=== PATIENT | male | born 1960 | race Caucasian/White ===

== ENCOUNTER 2018-09-24 11:33 | Emergency (ER) | payer BC ==
[2018-09-24] MEDS ORDERED: Sodium Chloride 0.9% 10 ML Syringe FLUSH PRN (11:51)
--- NOTE | 2018-09-24 12:00 | EDM.PDOC ---
ED HPI GENERAL MEDICAL PROBLEM - General Chief Complaint: Head Injury Stated Complaint: HIT HEAD Time Seen by Provider: 09/24/18 11:49 Source of Information: Reports: Patient History Limitations: Reports: No Limitations - History of Present Illness INITIAL COMMENTS - FREE TEXT/NARRATIVE: 58-year-old male presents to the ED by ambulance after passing out in the workplace. Patient remembers being slightly dizzy and lightheaded for just a short period of time before he collapsed and was found unresponsive on the floor. It's unclear what he hit but he believes he may have struck the counter top with his right ashlee-face. He has suffered contusions and superficial lacerations over his right zygomatic process and along the inferior alae of his right naris. He has no malocclusion. He states he has have a facial pain and mild right headache. Note the patient had a defibrillator pacemaker placed on July 2010 .He doesn't think that it went off. Examination reveals he is contused the right side of his face with superficial lacerations but nothing that is going to require suture repair. Patient is on aliquots because of chronic atrial fibrillation. Therefore he will be for CT of his head to make sure there is no intracranial bleeding. ECG shows atrial fibrillation with a rate of 121/m. Blood pressure is 140/84. He does show multifocal PVCs. Therefore we will have his defibrillator pacemaker interrogated. 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 It's unclear how long he was unresponsive since it was no one else around him. He was working in a very hot steamy environment cooking. He believes he struck the countertop with the right side of his face with resultant lacerations and contusions.). Denies : Activity, Exercise, Lifting, Sick Contact, Trauma Associated Symptoms: Reports: No Other Symptoms, Shortness of Breath. Denies: Confusion, Chest Pain, Cough, cough w sputum, Diaphoresis, Fever/Chills, Headaches, Loss of Appetite, Malaise, Nausea/Vomiting, Rash, Seizure, Syncope Treatments [employer]: Reports: Other (see below) (Only his usual medications.) Headache Pain Score (Numeric/FACES): 5 - Related Data Allergies Allergy/AdvReac Type Severity Reaction Status Date / Time No Known Allergies Allergy Verified 09/24/18 11:54 Home Meds: Home Meds Apixaban [Eliquis] 5 mg PO ASDIRECTED 09/24/18 [History] Digoxin [Digitek] 125 mcg PO ASDIRECTED 09/24/18 [History] Diltiazem HCl [Diltiazem 24Hr ER] 180 mg PO ASDIRECTED 09/24/18 [History] Furosemide [Lasix] 80 mg PO ASDIRECTED 09/24/18 [History] Lisinopril 40 mg PO ASDIRECTED 09/24/18 [History] Spironolactone [Aldactone] 25 mg PO ASDIRECTED 09/24/18 [History] atorvaSTATin Calcium [Atorvastatin Calcium] 20 mg PO ASDIRECTED 09/24/18 [ History] sitaGLIPtin Phos/Metformin HCl [Janumet Xr 50-1,000 mg Tablet] 1 tab PO ASDIRECTED 09/24/18 [History] Past Medical History Cardiovascular History: Reports: Afib (He is on Cardizem daily for rate control. He is also on Eliquis to prevent stroke.), Automatic Implantable Cardioverter Defibrillators (Implanted in July 2010.), Heart Failure, Hypertension Musculoskeletal History: Reports: Back Pain, Chronic, Osteoarthritis Endocrine/Metabolic History: Reports: Diabetes, Type II - Past Surgical History Cardiovascular Surgical History: Reports: AICD, Pacer Social & Family History - Living Situation & Occupation Living situation: Reports: Single Occupation: Employed ED ROS GENERAL - Review of Systems Review Of Systems: See Below Constitutional: Denies: Fever, Chills, Malaise, Weakness, Fatigue, Decreased Appetite, Weight Loss HEENT: Reports: No Symptoms Respiratory: Reports: Shortness of Breath Cardiovascular: Reports: Blood Pressure Problem, Other (Chronic arrhythmia i.e. atrial fibrillation with multifocal PVCs. So has a defibrillator pacemaker in place since 2010.). Denies: Chest Pain Endocrine: Reports: Fatigue, High Glucose GI/Abdominal: Reports: No Symptoms : Reports: Frequency, Other (Ocular usually 2.) Musculoskeletal: Reports: Joint Pain Skin: Reports: Bruising (These hips low back at times.) Neurological: Reports: No Symptoms Psychiatric: Reports: No Symptoms Hematologic/Lymphatic: Reports: No Symptoms ED EXAM, HEAD INJURY - Physical Exam Exam: See Below Exam Limited By: No Limitations General Appearance: Alert, WD/WN, Mild Distress, Other (Obvious injuries to his right ashlee-face.) Head: Atraumatic, Normocephalic, Facial Abrasions (Facial abrasions over the zygomatic process and superficial laceration adjacent adjacent to the alae of his right naris.) Nexus Criteria: No: Posterior, Midline Cervical Tenderness, Evidence of Intoxication, Altered Level of Consciousness, Focal Neurological Deficit, Painful Distraction Injuries Eyes: Bilateral Eye: Normal Inspection Throat/Mouth: Normal Inspection, Normal Lips, Normal Oropharynx, Other (No injuries to his tongue or teeth.) Neck: Full Range of Motion, Normal Alignment, Normal Inspection, Tender Lateral (Mild tenderness laterally.) Respiratory: Respiratory Distress, Decreased Breath Sounds (Breath sounds are diminished the lower 20% of lung tamayo bilaterally.). No: Lungs Clear, Normal Breath Sounds, Rales, Rhonchi, Wheezing Cardiovascular: No Gallop, No Murmur, No Rub, Irregularly Irregular (Heart rate is irregularly irregular with atrial fibrillation at 99/m when I examined him.) . No: Normal Peripheral Pulses, Regular Rate, Rhythm, JVD GI/Abdominal Exam: Normal Bowel Sounds, Soft, Non-Tender, No Organomegaly, Other (Abdomen is obese and firm to palpation abdominal girth limits ability to palpate solid organs.) Back Exam: Normal Inspection, Full Range of Motion. No: CVA Tenderness (L), CVA Tenderness (R) Extremities: Normal Inspection, Normal Range of Motion, Non-Tender, No Pedal Edema, Normal Capillary Refill Neurologic: No Motor/Sensory Deficits, Alert, Normal Mood/Affect, Oriented x 3 Skin: Normal Color, Warm/Dry - Joy Coma Score Best Eye Response (Joy): (4) Open Spontaneously Best Verbal Response ([place]): (5) Oriented Best Motor Response ([place]): (6) Obeys Commands Joy Total: 15 Course - Vital Signs Last Recorded V/S: Last Vital Signs Temp 36.4 C 09/24/18 14:03 Pulse 78 04/04/19 14:03 Resp 16 09/24/18 14:03 BP 114/80 09/24/18 14:03 Pulse Ox 98 09/24/18 14:03 Orthostatic Blood Pressure [ 114/69 Standing] Orthostatic Blood Pressure [ 116/67 Sitting] Orthostatic Blood Pressure [ 124/89 Supine] - Orders/Labs/Meds Orders: Active Orders 24 hr Category Date Time Status EKG Documentation Completion [RC] STAT Care 09/24/18 11:50 Active Glucose [Blood Glucose Check, Bedside] [RC] ONETIME Care 09/24/18 11:52 Active Orthostatic Vital Signs [RC] ASDIRECTED Care 09/24/18 12:58 Active Sodium Chloride 0.9% [Saline Flush] Med 09/24/18 11:51 Active 10 ml FLUSH ASDIRECTED PRN Saline Lock Insert [OM.PC] Routine Oth 09/24/18 11:51 Ordered Medication Orders Sodium Chloride (Saline Flush) 10 ml FLUSH ASDIRECTED PRN PRN Reason: Keep Vein Open Last Admin: 09/24/18 12:32 Dose: 10 ml Labs: Laboratory Tests 09/24/18 09/24/18 Range/Units 11:55 11:55 WBC 11.55 H (4.23-9.07) K/mm3 RBC 4.93 (4.63-6.08) M/mm3 Hgb 14.5 (13.7-17.5) gm/L Hct 41.4 (40.1-51.0) % MCV 84.0 (79.0-92.2) fl MCH 29.4 (25.7-32.2) pg MCHC 35.0 (32.2-35.5) g/dl RDW Std Deviation 38.4 (35.1-43.9) fL Plt Count 242 (163-337) K/mm3 MPV 10.3 (9.4-12.3) fl Neut % (Auto) 72.7 H (34.0-67.9) % Lymph % (Auto) 16.1 L (21.8-53.1) % [place] % (Auto) 7.2 (5.3-12.2) % Eos % (Auto) 3.1 (0.8-7.0) Baso % (Auto) 0.3 (0.1-1.2) % Neut # (Auto) 8.39 H (1.78-5.38) K/mm3 Lymph # (Auto) 1.86 (1.32-3.57) K/mm3 [place] # (Auto) 0.83 H (0.30-0.82) K/mm3 Eos # (Auto) 0.36 (0.04-0.54) K/mm3 Baso # (Auto) 0.04 (0.01-0.08) K/mm3 Sodium 132 L (136-145) mEq/L Potassium 4.7 (3.5-5.1) mEq/L Chloride 97 L (98-107) mEq/L Carbon Dioxide 22 (21-32) mEq/L Anion Gap 17.7 H (5-15) BUN 34 H (7-18) mg/dL Creatinine 1.3 (0.7-1.3) mg/dL Est Cr Clr Drug Dosing TNP Estimated GFR (MDRD) 57 (>60) mL/min BUN/Creatinine Ratio 26.2 H (14-18) Glucose 291 H (74-106) mg/dL Calcium 10.0 (8.5-10.1) mg/dL Magnesium 1.8 (1.8-2.4) mg/dl Total Bilirubin 1.1 H (0.2-1.0) mg/dL AST 18 (15-37) U/L ALT 36 (16-63) U/L Alkaline Phosphatase 58 (46-116) U/L Troponin I < 0.017 (0.00-0.056) ng/mL Total Protein 7.7 (6.4-8.2) g/dl Albumin 4.2 (3.4-5.0) g/dl Globulin 3.5 gm/dL Albumin/Globulin Ratio 1.2 (1-2) Meds: Medications Generic Name Dose Route Start Last Admin Trade Name Freq PRN Reason Stop Dose Admin Sodium Chloride 10 ml 09/24/18 11:51 09/24/18 12:32 Saline Flush FLUSH 10 ml ASDIRECTED PRN Administration Keep Vein Open - Radiology Interpretation Free Text/Narrative:: 58-year-old male presents to the ED after syncope collapse in the workplace today. She does recall being slightly dizzy before he collapsed. He obviously hit the right side of his face on something on the way to the floor. He believes it was likely a countertop. Patient reports that he is on multiple medications for arrhythmias and diabetes. He is also on several antihypertensives including Lasix 80 mg every morning. Not ate or drank yet today. He states he was working in a very hot steamy kitchen. Patient states he doesn't believe he is out for very long. When he came to he didn't know what happened or how he got to the floor. The. No witnesses say for sure that there was no seizure activity but he has no postictal symptoms. He can talk completely normally and couldn't get back up after his syncopal collapse episode. He banged up the right side of his face in 2 areas over the zygomatic process and along the right alae of his nose. He is on Eliquis because of chronic atrial fibrillation. Patient seen in consultation with nurse practitioner Mary Doss. Plan his CT head to make sure there is no intracranial bleeding. Routine labs and orthostatic BPs to be done. - Re-Assessments/Exams Free Text/Narrative Re-Assessment/Exam: 09/24/18 13:44 Labs reveal a slightly elevated white count 11.55. Differential shows 72.7% neutrophils by automated differential. Hemoglobin is 14.5 hematocrit is 41.4. Platelet count 242,000. Sodium slightly low at 132. Potassium is 4.7. Chloride is 97 with a bicarbonate of 22. Anion gap is elevated at 17.7. BUN is 34 with a creatinine of 1.3. BUN 20 ratio is 26.2. Glucose is elevated at 291. Calcium is 10.0. Magnesium is 1.8. Bilirubin is 1.1. Liver function is otherwise normal. Troponin I is less than 0.017 total protein is 7.7 with an albumin fraction of 4.2. His orthostatics were positive. He was given Gatorade to drink any needs to go and eat. CT has been reviewed shows age-appropriate degenerative changes but no intracranial bleeding or mass effect or skull fracture. There is also no fractures in the zygomatic process or the maxillary sinuses. There is a chronic mucoid degenerative changes in the right maxillary sinus. 09/24/18: 13:45: [employer] interrogation of his defibrillator pacemaker reveals that he has not had any recent events and certainly the defibrillator component has never gone off. There is beenrecent evidence of a run of V. tach that would caused him to pass out. 09/24/18 14:10: Patient will be discharged to home. He needs to eat and drink. His injuries to his right ashlee-face are superficial and need to be treated only with topical antibiotic bacitracin or Polysporin. Is of a syncopal event appears to be not eating or drinking at today. Low blood pressure compounded by a very hot environment i.e. orthostatic hypotension. Departure - Departure Time of Disposition: 14:00 Disposition: Home, Self-Care 01 Clinical Impression: Orthostatic hypotension Syncope Qualifiers: Syncope type: unspecified Qualified Code(s): R55 - Syncope and collapse - Discharge Information *PRESCRIPTION DRUG MONITORING PROGRAM REVIEWED*: Not Applicable *COPY OF PRESCRIPTION DRUG MONITORING REPORT IN PATIENT ALAN: Not Applicable Instructions: Concussion, Adult, [id number], Orthostatic Hypotension, Hypotension, [id number] Referrals: Vee Hadley PA-C [Primary Care Provider] - Forms: ED Department Discharge Additional Instructions: You have been diagnosis with a syncope event that may be due to orthostatic hypotension. I recommend you take breaks at work when you feel you are getting over heated. Getting up slowly from a sitting position. Eat and hydrate yourself after taking your medications. Follow up with you PCP. Return to ER for any new or acute worsening symptoms. - My Orders Last 24 Hours: My Active Orders 09/24/18 12:58 Orthostatic Vital Signs [RC] ASDIRECTED - Assessment/Plan Last 24 Hours: My Active Orders 09/24/18 12:58 Orthostatic Vital Signs [RC] ASDIRECTED
--- NOTE | 2018-09-24 12:10 | EDM.PDOC ---
ED HPI GENERAL MEDICAL PROBLEM - General Chief Complaint: Head Injury Stated Complaint: HIT HEAD Time Seen by Provider: 09/24/18 11:49 Source of Information: Reports: Patient History Limitations: Reports: No Limitations - History of Present Illness INITIAL COMMENTS - FREE TEXT/NARRATIVE: 58 y/o male presents to ER with cc headache. He states he was at work today when he became light headed "and passed out woke up on the floor." He reports right sided headache. He is on Eliquis. He denies, neck pain, chest pain, back pain or SOB. He states he is a diabetic and did not eat today after taking his medications. He has a history of atrial fibrillation, HTN, DM. Onset: Today, Sudden Onset Date: 09/24/18 Onset Time: 11:00 Duration: Minutes:, Resolved Prior to Arrival Location: Reports: Head Severity: Mild Improves with: Reports: None Worsens with: Reports: None Associated Symptoms: Reports: Headaches. Denies: Chest Pain, Diaphoresis, Fever /Chills, Nausea/Vomiting, Shortness of Breath, Weakness Headache Pain Score (Numeric/FACES): 5 - Related Data Allergies Allergy/AdvReac Type Severity Reaction Status Date / Time No Known Allergies Allergy Verified 09/24/18 11:54 Home Meds: Home Meds Apixaban [Eliquis] 5 mg PO ASDIRECTED 09/24/18 [History] Digoxin [Digitek] 125 mcg PO ASDIRECTED 09/24/18 [History] Diltiazem HCl [Diltiazem 24Hr ER] 180 mg PO ASDIRECTED 09/24/18 [History] Furosemide [Lasix] 80 mg PO ASDIRECTED 09/24/18 [History] Lisinopril 40 mg PO ASDIRECTED 09/24/18 [History] Spironolactone [Aldactone] 25 mg PO ASDIRECTED 09/24/18 [History] atorvaSTATin Calcium [Atorvastatin Calcium] 20 mg PO ASDIRECTED 09/24/18 [ History] sitaGLIPtin Phos/Metformin HCl [Janumet Xr 50-1,000 mg Tablet] 1 tab PO ASDIRECTED 09/24/18 [History] ED ROS GENERAL - Review of Systems Review Of Systems: See Below Constitutional: Denies: Fever, Chills HEENT: Denies: Vertigo, Vision Change Respiratory: Denies: Shortness of Breath Cardiovascular: Reports: Lightheadedness. Denies: Chest Pain Endocrine: Reports: No Symptoms GI/Abdominal: Reports: No Symptoms : Reports: No Symptoms Musculoskeletal: Denies: Neck Pain, Back Pain Neurological: Reports: Dizziness, Headache, Syncope. Denies: Confusion, Numbness, Weakness, Gait Disturbance Psychiatric: Reports: No Symptoms Hematologic/Lymphatic: Reports: Other (take blood thinner) Immunologic: Reports: No Symptoms ED EXAM, HEAD INJURY - Physical Exam Exam: See Below Exam Limited By: No Limitations General Appearance: Alert, WD/WN, No Apparent Distress Head: Atraumatic, Normocephalic, Facial Abrasions (right side) Eyes: Bilateral Eye: EOMI, PERRL Ears: Normal External Exam, Normal Canal, Hearing Grossly Normal, Normal TMs Nose: Normal Inspection, Normal Mucousa Throat/Mouth: Normal Inspection, Normal Lips, Normal Teeth, Normal Gums, Normal Oropharynx, Normal Voice, No Airway Compromise Neck: Non-Tender, Full Range of Motion, Normal Alignment, Normal Inspection Respiratory: No Respiratory Distress, Lungs Clear, Normal Breath Sounds, No Accessory Muscle Use, Chest Non-Tender Cardiovascular: Normal Peripheral Pulses, No Edema, No Gallop, No JVD, No Murmur , No Rub, Irregularly Irregular GI/Abdominal Exam: Normal Bowel Sounds, Soft, Non-Tender, No Organomegaly, No Distention, No Abnormal Bruit, No Mass, Pelvis Stable Back Exam: Normal Inspection, Full Range of Motion Extremities: Normal Inspection, Normal Range of Motion, Non-Tender, No Pedal Edema, Normal Capillary Refill Neurologic: No Motor/Sensory Deficits, Alert, Normal Mood/Affect, Oriented x 3. No: Sensory Deficit Skin: Normal Color, Warm/Dry - Joy Coma Score Best Eye Response (Joy): (4) Open Spontaneously Best Verbal Response ([place]): (5) Oriented Best Motor Response (Joy): (6) Obeys Commands EKG INTERPRETATION EKG Date: 09/24/18 Time: 11:48 Rhythm: A-Fib Rate (Beats/Min): 77 EKG Interpretation Comments: multifocal pvc's low voltage in limb leads. Course - Vital Signs Last Recorded V/S: Last Vital Signs Temp 98.5 F 09/24/18 11:49 Pulse 78 09/24/18 11:49 Resp 22 H 09/24/18 11:49 BP 120/84 09/24/18 11:49 Pulse Ox 96 09/24/18 11:49 Orthostatic Blood Pressure [ 114/69 Standing] Orthostatic Blood Pressure [ 116/67 Sitting] Orthostatic Blood Pressure [ 124/89 Supine] - Orders/Labs/Meds Orders: Active Orders 24 hr Category Date Time Status EKG Documentation Completion [RC] STAT Care 09/24/18 11:50 Active Glucose [Blood Glucose Check, Bedside] [RC] ONETIME Care 09/24/18 11:52 Active Orthostatic Vital Signs [RC] ASDIRECTED Care 09/24/18 12:58 Active Sodium Chloride 0.9% [Saline Flush] Med 09/24/18 11:51 Active 10 ml FLUSH ASDIRECTED PRN Saline Lock Insert [OM.PC] Routine Oth 09/24/18 11:51 Ordered Medication Orders Sodium Chloride (Saline Flush) 10 ml FLUSH ASDIRECTED PRN PRN Reason: Keep Vein Open Last Admin: 09/24/18 12:32 Dose: 10 ml Labs: Laboratory Tests 09/24/18 09/24/18 Range/Units 11:55 11:55 WBC 11.55 H (4.23-9.07) K/mm3 RBC 4.93 (4.63-6.08) M/mm3 Hgb 14.5 (13.7-17.5) gm/L Hct 41.4 (40.1-51.0) % MCV 84.0 (79.0-92.2) fl MCH 29.4 (25.7-32.2) pg MCHC 35.0 (32.2-35.5) g/dl RDW Std Deviation 38.4 (35.1-43.9) fL Plt Count 242 (163-337) K/mm3 MPV 10.3 (9.4-12.3) fl Neut % (Auto) 72.7 H (34.0-67.9) % Lymph % (Auto) 16.1 L (21.8-53.1) % [place] % (Auto) 7.2 (5.3-12.2) % Eos % (Auto) 3.1 (0.8-7.0) Baso % (Auto) 0.3 (0.1-1.2) % Neut # (Auto) 8.39 H (1.78-5.38) K/mm3 Lymph # (Auto) 1.86 (1.32-3.57) K/mm3 [place] # (Auto) 0.83 H (0.30-0.82) K/mm3 Eos # (Auto) 0.36 (0.04-0.54) K/mm3 Baso # (Auto) 0.04 (0.01-0.08) K/mm3 Sodium 132 L (136-145) mEq/L Potassium 4.7 (3.5-5.1) mEq/L Chloride 97 L (98-107) mEq/L Carbon Dioxide 22 (21-32) mEq/L Anion Gap 17.7 H (5-15) BUN 34 H (7-18) mg/dL Creatinine 1.3 (0.7-1.3) mg/dL Est Cr Clr Drug Dosing TNP Estimated GFR (MDRD) 57 (>60) mL/min BUN/Creatinine Ratio 26.2 H (14-18) Glucose 291 H (74-106) mg/dL Calcium 10.0 (8.5-10.1) mg/dL Magnesium 1.8 (1.8-2.4) mg/dl Total Bilirubin 1.1 H (0.2-1.0) mg/dL AST 18 (15-37) U/L ALT 36 (16-63) U/L Alkaline Phosphatase 58 (46-116) U/L Troponin I < 0.017 (0.00-0.056) ng/mL Total Protein 7.7 (6.4-8.2) g/dl Albumin 4.2 (3.4-5.0) g/dl Globulin 3.5 gm/dL Albumin/Globulin Ratio 1.2 (1-2) Meds: Medications Generic Name Dose Route Start Last Admin Trade Name Freq PRN Reason Stop Dose Admin Sodium Chloride 10 ml 09/24/18 11:51 09/24/18 12:32 Saline Flush FLUSH 10 ml ASDIRECTED PRN Administration Keep Vein Open - Re-Assessments/Exams Free Text/Narrative Re-Assessment/Exam: 09/24/18 13:51 His WBC was 11.5, H7H 14.5/41.4 Na+ 132 K+ 4.7 mag 1.8 SB 291. Chest x-ray revealed no acute findings. 58 y/o male presented to ER with cc syncopal episode while at work. 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 He took his B/P medications , DM medications and didn't eat or drink. I feel his syncopal episode was due to orthostatic hypotension. His head CT revealed no bleed. His EKG revealed A- Fib, his [employer] interrogation showed no v-fib. I will discharge with instructions to follow up with his PCP. Instructed to hydrate himself and take breaks when he feels he is getting to hot at work. Instructed to return to the ER for any new or acute worsening symptoms. He verbalized understanding and is comfortable with plan for discharge. He is stable at time of discharge. Departure - Departure Time of Disposition: 13:56 Disposition: Home, Self-Care 01 Condition: Good Clinical Impression: Orthostatic hypotension Syncope Qualifiers: Syncope type: heat syncope Encounter type: initial encounter Qualified Code(s) : T67.1XXA - Heat syncope, initial encounter - Discharge Information *PRESCRIPTION DRUG MONITORING PROGRAM REVIEWED*: Not Applicable *COPY OF PRESCRIPTION DRUG MONITORING REPORT IN PATIENT ALAN: Not Applicable Instructions: Hypotension, [id number], Orthostatic Hypotension, Concussion, Adult, [id number] Referrals: Vee Hadley PA-C [Primary Care Provider] - Forms: ED Department Discharge Additional Instructions: You have been diagnosis with a syncope event that may be due to orthostatic hypotension. I recommend you take breaks at work when you feel you are getting over heated. Getting up slowly from a sitting position. Eat and hydrate yourself after taking your medications. Follow up with you PCP. Return to ER for any new or acute worsening symptoms. - My Orders Last 24 Hours: My Active Orders 09/24/18 11:50 EKG Documentation Completion [RC] STAT 09/24/18 11:51 Sodium Chloride 0.9% [Saline Flush] 10 ml FLUSH ASDIRECTED PRN Saline Lock Insert [OM.PC] Routine 09/24/18 11:52 Glucose [Blood Glucose Check, Bedside] [RC] ONETIME - Assessment/Plan Last 24 Hours: My Active Orders 09/24/18 11:50 EKG Documentation Completion [RC] STAT 09/24/18 11:51 Sodium Chloride 0.9% [Saline Flush] 10 ml FLUSH ASDIRECTED PRN Saline Lock Insert [OM.PC] Routine 09/24/18 11:52 Glucose [Blood Glucose Check, Bedside] [RC] ONETIME
--- NOTE | 2018-09-24 12:33 | CR ---
Chest: Two views of the chest are obtained. Comparison: Previous chest x-ray of 01/06/18. Heart size at the upper limits of normal. AICD is noted. Upper mediastinum is within normal limits. Lungs are clear with no acute parenchymal change. Scattered degenerative change is noted within the spine. Several compression deformities are seen within the mid and lower thoracic spine which appear to be old. Impression: 1. Incidental findings as noted above. Nothing acute is appreciated. Diagnostic code #2
--- NOTE | 2018-09-24 12:36 | CT ---
Head CT Technique: Multiple axial sections through the brain were obtained. Intravenous contrast was not utilized. Comparison: No prior intracranial imaging is available. Findings: Ventricles along with basal cisterns and sulci over the convexities are mildly prominent. Low-density area is noted within the posterior right frontal region which most likely represents an old small infarct or focal area of encephalomalacia from previous trauma. Old lacunar infarct is noted within the right basal ganglia. No other abnormal parenchymal densities are seen. No evidence of intracranial hemorrhage. No midline shift or mass effect is seen. Two small rounded soft tissue findings are seen within the inferior right maxillary sinus with largest measuring 1.3 cm compatible with incidental retention cysts. No acute calvarial abnormality is seen. Impression: 1. Several findings which appear old as noted above. 2. No acute intracranial abnormality is identified. Diagnostic code #2
== END 2018-09-24 14:04 | disposition home or self-care (01) ==
LOC: JD.ED 11:33
DX: T67.1XXA Heat syncope, initial encounter (principal); I95.1 Orthostatic hypotension
CPT/HCPCS: 36415; 70450; 70450-26; 71046; 71046-26; 80053; 82962; 83735; 84484; 85025; 93005; 93010; 99284; 99285-25

== ENCOUNTER 2020-01-17 12:07 | Emergency (ER) | payer BC, OTHER ==
[2020-01-17] MEDS ORDERED: Dextrose 5%-Lactated Ringers 1,000 ML IV SCH (12:30)
--- NOTE | 2020-01-17 12:32 | EDM.PDOC ---
ED HPI GENERAL MEDICAL PROBLEM - General Chief Complaint: Trauma Stated Complaint: NEED DEFIBRILLATOR CHECK (WENT OFF) Time Seen by Provider: 01/17/20 12:13 Source of Information: Reports: Patient History Limitations: Reports: No Limitations - History of Present Illness INITIAL COMMENTS - FREE TEXT/NARRATIVE: 59-year-old male presents to the ED per private vehicle after his defibrillator went off at least once and possibly twice at approximately 1030 this morning. Patient lives at [facility] which is about 45 to 50 miles away from [place]. Reports that he had his a pacemaker defibrillator placed in 2010 and is currently followed by warehouse puller Dr. Ames. He states his defibrillator pacemaker is never gone off before. He states that he never had a ny warning signs it was going to go off. I.e. no dizziness or lightheadedness. Patient reports that when it went off it caused him to pass out and he fell backward striking the back of his head on he believes a countertop. He does not believe that he lost consciousness for more than a few seconds. Suffered a laceration to the right occipital scalp that is actively bleeding. Patient is on Eliquis daily due to his underlying arrhythmia. He has no pain in his cervical spine. Denies pain in his thoracic or lumbar spine and he indicates that he is able to walk without any pain in his extremities. Denies any upper extremity pain either. Denies any headache at this time denies any nausea or vomiting. Denies any visual acuity problems. He believes his tetanus diphtheria pertussis vaccine is up-to-date. Onset: Today, Sudden Onset Date: 01/17/20 Onset Time: 10:30 Duration: Hour(s):, Other Location: Reports: Head (Right occipital scalp. Son at 1 cm laceration which is actively bleeding) Quality: Reports: Ache (Mild right occipital) Severity: Mild Improves with: Reports: None Worsens with: Reports: None Context: Reports: Trauma (Fall backwards and believes he struck the edge of a countertop after his defibrillator went off her discharged once or twice this morning.). Denies: Activity, Exercise, Lifting, Sick Contact Associated Symptoms: Reports: No Other Symptoms Treatments CATALYST IMPREGNATOR: Reports: Other (see below) (None.) - Related Data Allergies Allergy/AdvReac Type Severity Reaction Status Date / Time No Known Allergies Allergy Verified 01/17/20 12:21 Home Meds: Home Meds Apixaban [Eliquis] 5 mg PO BID 09/24/18 [History] Digoxin [Digitek] 125 mcg PO DAILY 09/24/18 [History] Furosemide [Lasix] 80 mg PO DAILY 09/24/18 [History] Lisinopril 40 mg PO DAILY 09/24/18 [History] Spironolactone [Aldactone] 25 mg PO DAILY 09/24/18 [History] atorvaSTATin Calcium [Atorvastatin Calcium] 20 mg PO DAILY 09/24/18 [History] dilTIAZem HCL [Diltiazem 24Hr ER] 180 mg PO DAILY 09/24/18 [History] sitaGLIPtin Phos/Metformin HCl [Janumet Xr 50-1,000 mg Tablet] 1 tab PO DAILY 09/24/18 [History] Loratadine [Claritin] 10 mg PO DAILY PRN 01/17/20 [History] Past Medical History Cardiovascular History: Reports: Afib (He is on Cardizem daily for rate control. 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 Review of Systems - Review of Systems Review Of Systems: See Below Constitutional: Reports: No Symptoms Eyes: Reports: Glasses Ears: Reports: No Symptoms Nose: Reports: No Symptoms Mouth/Throat: Reports: No Symptoms Respiratory: Reports: Shortness of Breath (Assertion.) Cardiovascular: Reports: Lightheadedness (Day with syncope/collapse secondary to arrhythmia and defibrillator response), Syncope (Today.). Denies: Chest Pain, Edema, Irregular Heart Rate GI/Abdominal: Reports: No Symptoms Genitourinary: Reports: Other (Urinary frequency) Musculoskeletal: Reports: Back Pain, Joint Pain (Hips and neck at times) Skin: Reports: Bruising (Bruises easily as he is on Eliquis) Neurological: Reports: No Symptoms Psychiatric: Reports: No Symptoms ED EXAM, GENERAL - Physical Exam Exam: See Below Exam Limited By: No Limitations General Appearance: Alert, WD/WN, Mild Distress, Other (2. Is 36.2. Heart rate was 91 and sinus with occasional PVCs appreciate on the monitor. Respiratory rate was 17 with O2 sats of 99 to 100%. BP initially was low at 9169 but returned to 103 systolic over 72. It is a blood pressure usually runs in the 1 teens.) Eye Exam: Bilateral Eye: Normal Inspection, PERRL Ears: Normal TMs Nose: Normal Inspection Throat/Mouth: Normal Inspection, Normal Lips, Normal Oropharynx, Other (Injury to his tongue or dentition.) Head: Other (A 3.5 cm hematoma which is superficial right occipital scalp. Associated 2 cm linear laceration in this area which is deep down to the galea. It will require suture repair. Is actively bleeding.) Neck: Normal Inspection, Supple, Non-Tender, Full Range of Motion, Other (Unopposed range of motion with no cervical neck pain.). No: Lymphadenopathy (L), Lymphadenopathy (R) Respiratory/Chest: No Respiratory Distress, Lungs Clear, No Accessory Muscle Use, Decreased Breath Sounds, Other (This maker defibrillator palpable left upper anterior chest.) Cardiovascular: No Gallop, No JVD, No Murmur, No Rub, Irregularly Irregular (When PVCs on the monitor.). No: Normal Peripheral Pulses, No Edema Peripheral Pulses: 2+: Posterior Tibial (L), Posterior Tibial (R), Dorsalis Pedis (L), Dorsalis Pedis (R), 3+: Carotid (L), Carotid (R) GI/Abdominal: Normal Bowel Sounds, Soft, Non-Tender, No Organomegaly, No Mass, Pelvis Stable, Other (No surgical scars.) Back Exam: Normal Inspection, Full Range of Motion, Other. No: CVA Tenderness (L), CVA Tenderness (R) Extremities: Normal Inspection (No contusions abrasions to the thoracic or lumbar spine. No pain on palpation of the thoracic and lumbar spine on exam.), Normal Range of Motion, Non-Tender, No Pedal Edema, Normal Capillary Refill, Other (Occasions of injuries to his elbows shoulders, AC joints) Neurological: Alert ( or wrists or hands. Similarly no lower extremity injuries appreciate on examination), Oriented, CN II-XII Intact, Normal Cognition Psychiatric: Anxious Skin Exam: Warm, Dry, Normal Color, No Rash, Wound/Incision ED TRAUMA PROCEDURES - Laceration/Wound Repair Right Middle Occipital Head Lac/Wound Length In cm: 2.0 Appearance: Subcutaneous (Ear deep laceration 2 cm in length right occipital scalp.), Clean Anesthetic Type: Local Local Anesthesia - Lidocaine (Xylocaine): 1% Plain Local Anesthetic Volume: 2cc Skin Prep: Saline Exploration/Debridement/Repair: Wound Explored Closed With: Sutures Suture Size: 3-0 # of Sutures: 3 Suture Type: Prolene, Interrupted, Simple EKG INTERPRETATION EKG Date: 01/17/20 Time: 12:54 Rhythm: NSR Rate (Beats/Min): 81 Urich: Normal P-Wave: Enlarged (Left atrial hypertrophy.) QRS: Other (New Q waves V1 to V3 suggesting an old anteroseptal myocardial infarction. There are also Q waves in leads III and aVF suggesting old inferior wall myocardial infarction. Creased voltage limb and precordial leads as the patient has a thick chest.) ST-T: Normal QT: Normal EKG Interpretation Comments: Abnormal ECG Course - Vital Signs Last Recorded V/S: Last Vital Signs Temp 36.2 C 01/17/20 12:16 Pulse 91 01/17/20 12:16 Resp 17 01/17/20 12:16 BP 91/69 01/17/20 12:16 Pulse Ox 100 01/17/20 12:16 - Orders/Labs/Meds Orders: Active Orders 24 hr Category Date Time Status Blood Glucose Check, Bedside [RC] ONETIME Care 01/17/20 12:26 Active EKG Documentation Completion [RC] STAT Care 01/17/20 12:25 Active Chest 1V Frontal [CR] Stat Exams 01/17/20 12:25 Taken DRUG SCREEN, URINE [URCHEM] Stat Lab 01/17/20 14:42 Ordered URINALYSIS W/MICROSCOPIC [UA W/MICROSCOPIC] [URIN] Stat Lab 01/17/20 14:41 Ordered Dextrose 5%-Lactated Ringers 1,000 ml Med 01/17/20 12:30 Active IV ASDIRECTED Magnesium Sulfate/Water [Magnesium Sulfate in Water Med 01/17/20 14:11 Active Premix] 2 gm Premix Bag 1 bag IV ONETIME Medication Orders Dextrose/Lactated Ringer's (Dextrose 5%-Lactated Ringers) 1,000 mls @ 150 mls/hr IV ASDIRECTED CONOR Last Admin: 01/17/20 12:43 Dose: 150 mls/hr Documented by: AUDREY Magnesium Sulfate 2 gm/ Premix 50 mls @ 25 mls/hr IV ONETIME ONE Stop: 01/17/20 16:10 Last Admin: 01/17/20 14:33 Dose: 25 mls/hr Documented by: PASTOR Labs: Laboratory Tests 01/17/20 01/17/20 01/17/20 Range/Units 12:20 12:20 12:20 WBC 9.04 (4.23-9.07) K/mm3 RBC 4.37 L (4.63-6.08) M/mm3 Hgb 12.7 L (13.7-17.5) gm/dl Hct 37.6 L (40.1-51.0) % MCV 86.0 (79.0-92.2) fl MCH 29.1 (25.7-32.2) pg MCHC 33.8 (32.2-35.5) g/dl RDW Std Deviation 40.8 (35.1-43.9) fL Plt Count 248 (163-337) K/mm3 MPV 9.8 (9.4-12.3) fl Neut % (Auto) 71.4 H (34.0-67.9) % Lymph % (Auto) 15.4 L (21.8-53.1) % Coffee % (Auto) 8.2 (5.3-12.2) % Eos % (Auto) 4.4 (0.8-7.0) Baso % (Auto) 0.3 (0.1-1.2) % Neut # (Auto) 6.45 H (1.78-5.38) K/mm3 Lymph # (Auto) 1.39 (1.32-3.57) K/mm3 Coffee # (Auto) 0.74 (0.30-0.82) K/mm3 Eos # (Auto) 0.40 (0.04-0.54) K/mm3 Baso # (Auto) 0.03 (0.01-0.08) K/mm3 PT 11.3 (9.7-12.0) SECONDS INR 1.04 APTT 29 (22-31) SECONDS Sodium 131 L (136-145) mEq/L Potassium 4.8 (3.5-5.1) mEq/L Chloride 99 (98-107) mEq/L Carbon Dioxide 20 L (21-32) mEq/L Anion Gap 16.8 H (5-15) BUN 34 H (7-18) mg/dL Creatinine 1.3 (0.7-1.3) mg/dL Est Cr Clr Drug Dosing 63.17 mL/min Estimated GFR (MDRD) 57 (>60) mL/min BUN/Creatinine Ratio 26.2 H (14-18) Glucose 136 H (74-106) mg/dL POC Glucose (70-105) mg/dL Calcium 9.4 (8.5-10.1) mg/dL Magnesium 1.5 L (1.8-2.4) mg/dl Total Bilirubin 0.7 (0.2-1.0) mg/dL AST 14 L (15-37) U/L ALT 21 (16-63) U/L Alkaline Phosphatase 72 (46-116) U/L CK-MB (CK-2) 1.0 (0-3.6) ng/ml Troponin I < 0.017 (0.00-0.056) ng/mL NT-Pro-B Natriuret Pep (0-125) pg/mL Total Protein 7.3 (6.4-8.2) g/dl Albumin 3.8 (3.4-5.0) g/dl Globulin 3.5 gm/dL Albumin/Globulin Ratio 1.1 (1-2) Digoxin (0.9-2.0) ng/mL COVID-19 (JANICE) (NEGATIVE) 01/17/20 01/17/20 01/17/20 Range/Units 12:20 12:20 12:45 WBC (4.23-9.07) K/mm3 RBC (4.63-6.08) M/mm3 Hgb (13.7-17.5) gm/dl Hct (40.1-51.0) % MCV (79.0-92.2) fl MCH (25.7-32.2) pg MCHC (32.2-35.5) g/dl RDW Std Deviation (35.1-43.9) fL Plt Count (163-337) K/mm3 MPV (9.4-12.3) fl Neut % (Auto) (34.0-67.9) % Lymph % (Auto) (21.8-53.1) % Coffee % (Auto) (5.3-12.2) % Eos % (Auto) (0.8-7.0) Baso % (Auto) (0.1-1.2) % Neut # (Auto) (1.78-5.38) K/mm3 Lymph # (Auto) (1.32-3.57) K/mm3 Coffee # (Auto) (0.30-0.82) K/mm3 Eos # (Auto) (0.04-0.54) K/mm3 Baso # (Auto) (0.01-0.08) K/mm3 PT (9.7-12.0) SECONDS INR APTT (22-31) SECONDS Sodium (136-145) mEq/L Potassium (3.5-5.1) mEq/L Chloride (98-107) mEq/L Carbon Dioxide (21-32) mEq/L Anion Gap (5-15) BUN (7-18) mg/dL Creatinine (0.7-1.3) mg/dL Est Cr Clr Drug Dosing mL/min Estimated GFR (MDRD) (>60) mL/min BUN/Creatinine Ratio (14-18) Glucose (74-106) mg/dL POC Glucose 126 H (70-105) mg/dL Calcium (8.5-10.1) mg/dL Magnesium (1.8-2.4) mg/dl Total Bilirubin (0.2-1.0) mg/dL AST (15-37) U/L ALT (16-63) U/L Alkaline Phosphatase (46-116) U/L CK-MB (CK-2) (0-3.6) ng/ml Troponin I (0.00-0.056) ng/mL NT-Pro-B Natriuret Pep 826 H (0-125) pg/mL Total Protein (6.4-8.2) g/dl Albumin (3.4-5.0) g/dl Globulin gm/dL Albumin/Globulin Ratio (1-2) Digoxin < 0.2 L (0.9-2.0) ng/mL COVID-19 (JANICE) (NEGATIVE) 01/17/20 Range/Units 15:10 WBC (4.23-9.07) K/mm3 RBC (4.63-6.08) M/mm3 Hgb (13.7-17.5) gm/dl Hct (40.1-51.0) % MCV (79.0-92.2) fl MCH (25.7-32.2) pg MCHC (32.2-35.5) g/dl RDW Std Deviation (35.1-43.9) fL Plt Count (163-337) K/mm3 MPV (9.4-12.3) fl Neut % (Auto) (34.0-67.9) % Lymph % (Auto) (21.8-53.1) % Coffee % (Auto) (5.3-12.2) % Eos % (Auto) (0.8-7.0) Baso % (Auto) (0.1-1.2) % Neut # (Auto) (1.78-5.38) K/mm3 Lymph # (Auto) (1.32-3.57) K/mm3 Coffee # (Auto) (0.30-0.82) K/mm3 Eos # (Auto) (0.04-0.54) K/mm3 Baso # (Auto) (0.01-0.08) K/mm3 PT (9.7-12.0) SECONDS INR APTT (22-31) SECONDS Sodium (136-145) mEq/L Potassium (3.5-5.1) mEq/L Chloride (98-107) mEq/L Carbon Dioxide (21-32) mEq/L Anion Gap (5-15) BUN (7-18) mg/dL Creatinine (0.7-1.3) mg/dL Est Cr Clr Drug Dosing mL/min Estimated GFR (MDRD) (>60) mL/min BUN/Creatinine Ratio (14-18) Glucose (74-106) mg/dL POC Glucose (70-105) mg/dL Calcium (8.5-10.1) mg/dL Magnesium (1.8-2.4) mg/dl Total Bilirubin (0.2-1.0) mg/dL AST (15-37) U/L ALT (16-63) U/L Alkaline Phosphatase (46-116) U/L CK-MB (CK-2) (0-3.6) ng/ml Troponin I (0.00-0.056) ng/mL NT-Pro-B Natriuret Pep (0-125) pg/mL Total Protein (6.4-8.2) g/dl Albumin (3.4-5.0) g/dl Globulin gm/dL Albumin/Globulin Ratio (1-2) Digoxin (0.9-2.0) ng/mL COVID-19 (JANICE) Negative (NEGATIVE) Meds: Medications Generic Name Dose Route Start Last Admin Trade Name Freq PRN Reason Stop Dose Admin Dextrose/Lactated Ringer's 1,000 mls @ 150 mls/hr 01/17/20 12:30 01/17/20 12:43 Dextrose 5%-Lactated Ringers IV 150 mls/hr ASDIRECTED CONOR Administration Magnesium Sulfate 2 gm/ Premix 50 mls @ 25 mls/hr 01/17/20 14:11 01/17/20 14:33 IV 01/17/20 16:10 25 mls/hr ONETIME ONE Administration Discontinued Medications Generic Name Dose Route Start Last Admin Trade Name Freq PRN Reason Stop Dose Admin Lidocaine HCl 10 ml 01/17/20 14:16 Xylocaine 1% INJECT 01/17/20 14:17 ONETIME ONE - Radiology Interpretation Free Text/Narrative:: The 59-year-old male presents to the ED after his cardiac defibrillator discharged at least once or possibly twice at approximately 1030 this morning. He did lose consciousness for minimal point of time or at least suffered a syncopal episode which resulted in falling backwards striking the back of his right head likely on a countertop. This resulted in a 1 cm laceration to the right occipital scalp with a surrounding hematoma. Patient is on Eliquis due to cardiac arrhythmias. Trauma call originated on this patient because of closed head injury being on a blood thinner. Plan CT head to be done. Cardiac fibrillator knee will need to be interrogated. Routine labs to be done. IV will be D5 LR at 150 mils per hour since the patient has not yet ate or drank today. 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 He has had a defibrillator pacemaker placed since 2011. To his knowledge it is never gone off before or discharged. - Re-Assessments/Exams Free Text/Narrative Re-Assessment/Exam: 01/17/20 13:00:CT head reveals no acute intracranial injuries such as hematoma or intracranial bleeding. No skull fracture identified. There is evidence of at least 2 cerebral infarcts of which the patient has no knowledge of ever having incurred. There is a low density noted within the posterior right frontal and parietal region most likely due to small old infarcts or due to an area of encephalomalacia from old trauma. This is a stable finding based on ECG done 1 year ago. There is also a small old lacunar infarct within the right basal ganglia which is also stable. I thought there was also a small infarct in the left occipital lobe which the radiologist did not comment on. Ventricles along with the basal cisterns and sulci over the convexities are mildly prominent. Bone window settings were reviewed. No acute paranasal sinus findings identified. Mastoid sinuses are clear as well. X-ray done portably 1 view. It reveals a significant enlarged heart with a pacemaker defibrillator left upper anterior chest. Visualized portions of the lungs are clear. There is a elevated right hemidiaphragm at least one leaflet. This is a chronic problem. 01/17/20 14:11 WBC is normal at 9.04. It reveals 71.4% neutrophils. Hemoglobin is 12.7 with hematocrit of 37.6. Platelet count 248,000. PT is 11.3 with an INR of 1.04. PTT is 29. Sodium is low at 131. Potassium is 4.8. Chloride is 99 with a bicarb of 20. Anion gap is mildly elevated at 16.8. BUN is also elevated at 34 indicating the patient is mildly volume depleted. Creatinine is 1.3. GFR is 57. Glucose is 136 in the lab 126 at the bedside. Calcium is 9.4. Magnesium is low at 1.5. Total bilirubin is 0.7. AST is 14 with an ALT of 21. Alk phosphatase is 72. CK-MB fraction is 1.0. Troponin I is less than 0.017. BNP is 826. Total protein is 7.3 with an albumin fraction of 3.8. Digoxin is less than 0.2 indicating the patient is not likely on this medication anymore. 01/17/20 14:15 Patient indicates that he still on digoxin but his dose was cut back in July when he was last seen his warehouse puller Dr. Ames. Awaiting the return of his interrogation of his defibrillator pacemaker from [employer]. We will continue him on low-dose fluid replacement. He is hyponatremic with a sodium of 131 likely secondary to chronic diuretic therapy. He is also mildly hypomagnesemic at 1.5. We will replace this with 2 g of magnesium over the next hour. We will also repair his small laceration right occipital scalp with 4-0 Prolene suture. 01/17/20 14:48 I have spoken with Dr. Ames warehouse puller at [facility] in [place] and he agrees the patient most likely should be admitted to the hospital for observation --likely needs to be started on anti-antiarrhythmic therapy. Had a potential lethal arrhythmia. It took 4 shocks to convert him back into sinus rhythm. Apparently monitor also shows numerous nonsustained PVCs. Appreciated also that the battery on his current defibrillator pacemaker is reading fairly low which sometimes can occur after it discharges recurrently. May also mean that the defibrillator is at the end of its life span. Patient report reports that it was placed in 2010. He had told me 2011. I have also spoken with hospitalist Dr. Bazan he is excepted care of this patient ultimately to telemetry service. 01/17/20 15:20: 3 sutures in his 2 cm laceration right occipital scalp. These are 3-0 Prolene sutures. They will need to be removed in 10 days time. Will be transported to [place] per [facility] service. Departure - Departure Time of Disposition: 15:49 Disposition: DC/Tfer to Acute Hospital 02 Condition: Fair Clinical Impression: Syncope and collapse, Defibrillator discharge, Personal history of ventricular tachycardia, Hypomagnesemia, Volume depletion Type 2 diabetes mellitus Qualifiers: Diabetes mellitus residential insulin use: with termite treater use Diabetes mellitus complication status: with other specified complication Qualified Code(s): E11.69 - Type 2 diabetes mellitus with other specified complication; Z79.4 - nursing home (current) use of insulin - Discharge Information Referrals: Vee Hadley PA-C [Primary Care Provider] - Forms: ED Department Discharge Additional Instructions: And to be transferred to [facility] in [place] under the care of --hospitalist who has accepted care. I previously had spoken with warehouse puller Dr. Ames, who recommended that the patient be transferred to [place] for observation and probably need to start antiarrhythmic therapy. Was after the patient suffered syncope/collapse at home after his defibrillator discharge x4 on interrogation. It appears that he suffered a malignant arrhythmia i.e. V. tach ventricular fibrillation at greater than 200 bpm. It appears that this episode lasted approximately 55 seconds before converted back to regular sinus rhythm. Sepsis Event Note (ED) - Evaluation Sepsis Screening Result: No Definite Risk - Focused Exam Vital Signs: Vital Signs Temp Pulse Resp BP Pulse Ox 01/17/20 12:16 36.2 C 91 17 91/69 100 - My Orders Last 24 Hours: My Active Orders 01/17/20 12:25 EKG Documentation Completion [RC] STAT Chest 1V Frontal [CR] Stat 01/17/20 12:26 Blood Glucose Check, Bedside [RC] ONETIME 01/17/20 12:30 Dextrose 5%-Lactated Ringers 1,000 ml IV ASDIRECTED 01/17/20 14:11 Magnesium Sulfate/Water [Magnesium Sulfate in Water Premix] 2 gm Premix Bag 1 bag IV ONETIME 01/17/20 14:41 URINALYSIS W/MICROSCOPIC [UA W/MICROSCOPIC] [URIN] Stat 01/17/20 14:42 DRUG SCREEN, URINE [URCHEM] Stat - Assessment/Plan Last 24 Hours: My Active Orders 01/17/20 12:25 EKG Documentation Completion [RC] STAT Chest 1V Frontal [CR] Stat 01/17/20 12:26 Blood Glucose Check, Bedside [RC] ONETIME 01/17/20 12:30 Dextrose 5%-Lactated Ringers 1,000 ml IV ASDIRECTED 01/17/20 14:11 Magnesium Sulfate/Water [Magnesium Sulfate in Water Premix] 2 gm Premix Bag 1 bag IV ONETIME 01/17/20 14:41 URINALYSIS W/MICROSCOPIC [UA W/MICROSCOPIC] [URIN] Stat 01/17/20 14:42 DRUG SCREEN, URINE [URCHEM] Stat
--- NOTE | 2020-01-17 13:00 | CT ---
Head CT Technique: Multiple axial sections through the brain were obtained. Intravenous contrast was not utilized. Comparison: Prior head CT study of 09/24/18. Findings: Low density is noted within the posterior right frontal and parietal region most likely due to small old infarct or due to an area of encephalomalacia from old trauma. This is a stable finding. Small old lacunar infarct is noted within the right basal ganglia which is also stable. No other abnormal parenchymal densities are seen. No evidence of intracranial hemorrhage. No midline shift or mass-effect is seen. Ventricles along with basal cisterns and sulci over the convexities are mildly prominent. Bone window settings were reviewed. No acute paranasal sinus findings are seen within the visualized sinuses. Mastoid sinuses that are seen appear clear. No acute calvarial finding is seen. Impression: 1. Stable findings as noted above. 2. No acute intracranial abnormality is appreciated. Diagnostic code #2 This report was dictated in MDT
[2020-01-17] MEDS ORDERED: Magnesium Sulfate/Water 2 GM in Premix Bag 1 BAG IV ONE (14:11)
[2020-01-17] MEDS ORDERED: Lidocaine 1% 10 ML MDV INJECT ONE (14:16)
--- NOTE | 2020-01-17 15:55 | CR ---
Chest: PA view of the chest was obtained. Comparison: Previous chest x-ray of 09/24/18. Heart size at the upper limits of normal. Upper mediastinum is normal. AICD is present. Lungs are clear with no acute parenchymal change. Bony structures are grossly intact. Impression: 1. Heart is slightly enlarged. 2. AICD is present. 3. Nothing acute is otherwise seen. Diagnostic code #2 This report was dictated in MDT
== END 2020-01-17 15:30 ==
LOC: JD.ED 12:07
DX: R55 Syncope and collapse (principal); S01.01XA Laceration without foreign body of scalp, initial encounter; E11.69 Type 2 diabetes mellitus with other specified complication; E83.42 Hypomagnesemia; E86.9 Volume depletion, unspecified; I11.0 Hypertensive heart disease with heart failure; I50.9 Heart failure, unspecified; I48.91 Unspecified atrial fibrillation; Z95.810 Presence of automatic (implantable) cardiac defibrillator; R94.31 Abnormal electrocardiogram [ECG] [EKG]; Z86.79 Personal history of other diseases of the circulatory system; Z87.891 Personal history of nicotine dependence; Z79.4 Long term (current) use of insulin; Z79.01 Long term (current) use of anticoagulants; Z79.899 Other long term (current) drug therapy; Z20.828 Contact with and (suspected) exposure to other viral communicable diseases; W19.XXXA Unspecified fall, initial encounter; W22.8XXA Striking against or struck by other objects, initial encounter
CPT/HCPCS: 12001; 36415; 70450; 71045; 80053; 80162; 82553; 82962; 83735; 83880; 84484; 85025; 85610; 85730; 87635; 93005; 96361; 96365; 99285; J2001; J3475; J7121; 93010; U0002

== ENCOUNTER 2023-03-14 16:49 | Emergency (ER) | payer BC ==
[2023-03-14] MEDS ORDERED: Sodium Chloride 0.9% 10 ML Syringe FLUSH PRN (16:59)
[2023-03-14 17:12] LABS: BASOPHILS PERCENT AUTO 0.3 % (0.0-1.0); EOSINOPHILS ABSOLUTE AUTO 0.4 K/mm3 (0.0-0.4); EOSINOPHILS PERCENT AUTO 3.2 % (0.0-6.0); HEMATOCRIT 36.7 % (42.0-52.0); HEMOGLOBIN 12.3 gm/dl (14.0-18.0); IMMATURE GRAN ABSOLUTE AUTO 0.16 K/mm3 (0.00-0.05); IMMATURE GRAN PERCENT AUTO 1.4 % (0.0-0.4); LYMPHOCYTES ABSOLUTE AUTO 1.3 K/mm3 (1.0-4.8); LYMPHOCYTES PERCENT AUTO 11.6 % (24.0-44.0); MEAN CORPUSCULAR HEMOGLOBIN 29.2 pg (28.0-32.0); MEAN CORPUSCULAR HGB CONC 33.5 g/dl (32.0-36.0); MEAN CORPUSCULAR VOLUME 87.2 fl (83.0-99.0); MEAN PLATELET VOLUME 9.8 fl (9.4-12.4); MONOCYTES ABSOLUTE AUTO 0.7 K/mm3 (0.0-0.8); MONOCYTES PERCENT AUTO 6.1 % (0.0-8.0); NEUTROPHILS ABSOLUTE AUTO 8.9 K/mm3 (1.8-7.7); NEUTROPHILS PERCENT AUTO 77.4 % (41.0-71.0); PLATELET COUNT,PLT 248 K/mm3 (150-400); RED BLOOD CELL COUNT 4.21 M/mm3 (4.52-5.90); WHITE BLOOD CELL COUNT,WBC 11.51 K/mm3 (3.9-11.3)
[2023-03-14 18:12] LABS: ALBUMIN 3.9 g/dl (3.4-5.0); ANION GAP 13.2 (5-15); BILIRUBIN TOTAL 0.7 mg/dL (0.2-1.0); BUN/CREATININE RATIO 23.3 (14-18); CALCIUM 9.2 mg/dL (8.5-10.1); CREATININE 1.2 mg/dL (0.7-1.3); EST CRCL DRUG DOSING (CG) 67.98 mL/min; POTASSIUM,K 4.2 mEq/L (3.5-5.1); PROTEIN TOTAL,TP 7.8 g/dl (6.4-8.2)
== END 2023-03-14 18:39 | disposition home or self-care (01) ==
LOC: JD.ED 16:49
DX: S00.01XA Abrasion of scalp, initial encounter (principal); R55 Syncope and collapse; M48.02 Spinal stenosis, cervical region; R20.2 Paresthesia of skin; I48.91 Unspecified atrial fibrillation; I11.0 Hypertensive heart disease with heart failure; I50.9 Heart failure, unspecified; E11.9 Type 2 diabetes mellitus without complications; Z95.0 Presence of cardiac pacemaker; Z79.01 Long term (current) use of anticoagulants; Z79.899 Other long term (current) drug therapy; W19.XXXA Unspecified fall, initial encounter
CPT/HCPCS: 36415; 70450; 70450-26; 72125; 72125-26; 80053; 84484; 85025; 93005; 93010; 99284; J3490

== ENCOUNTER 2024-11-22 09:44 | Inpatient (IN) | payer BC ==
[2024-11-22] MEDS ORDERED: Sodium Chloride 0.9% 10 ML Syringe FLUSH PRN (10:05)
[2024-11-22 10:32] LABS: HEMATOCRIT 39.5 % (42.0-52.0); HEMOGLOBIN 13.1 gm/dl (14.0-18.0); MEAN CORPUSCULAR HGB CONC 33.2 g/dl (32.0-36.0); MEAN CORPUSCULAR VOLUME 87.6 fl (83.0-99.0); MEAN PLATELET VOLUME 9.4 fl (9.4-12.4); PLATELET COUNT,PLT 174 K/mm3 (150-400); RED BLOOD CELL COUNT 4.51 M/mm3 (4.52-5.90); WHITE BLOOD CELL COUNT,WBC 14.22 K/mm3 (3.9-11.3)
[2024-11-22] MEDS: Sodium Chloride 0.9% 1,000 ML IV ONE (10:35)
[2024-11-22 10:52] LABS: INR 1.25; PROTHROMBIN TIME 13.1 SECONDS (9.7-12.0)
[2024-11-22] MEDS: cefTRIAXone 2 GM Vial IVPUSH ONE (10:52)
[2024-11-22] MEDS: Acetaminophen 325 MG Tab PO ONE (10:54)
[2024-11-22 10:59] LABS: LACTIC ACID 1.7 mmol/L (0.4-2.0)
[2024-11-22 11:06] LABS: A/G RATIO 0.7 (1-2); ALANINE AMINOTRANSFERASE,ALT 37 U/L (16-63); ALBUMIN 2.8 g/dl (3.4-5.0); ALKALINE PHOSPHATASE 110 U/L (46-116); ANION GAP 17.5 (5-15); ASPARTATE AMNIOTRANSFERASE,AST 29 U/L (15-37); BILIRUBIN TOTAL 1.7 mg/dL (0.2-1.0); BLOOD UREA NITROGEN,BUN 17 mg/dL (7-18); BUN/CREATININE RATIO 13.1 (14-18); C-REACTIVE PROTEIN 14.94 mg/dL (<0.30); CALCIUM 9.1 mg/dL (8.5-10.1); CARBON DIOXIDE,CO2 20 mEq/L (21-32); CHLORIDE,CL 99 mEq/L (98-107); CREATININE 1.3 mg/dL (0.7-1.3); ESTIMATED GFR 61 mL/min (>60); GLUCOSE RANDOM 179 mg/dL (70-99); POTASSIUM,K 3.5 mEq/L (3.5-5.1); PROTEIN TOTAL,TP 6.6 g/dl (6.4-8.2); SODIUM,NA 133 mEq/L (136-145); TROPONIN I HIGH SENSITIVITY 26 pg/mL (<=76)
[2024-11-22 12:07] LABS: CORONAVIRUS COVID-19 NAA NEGATIVE (NEGATIVE); INFLUENZA A NAA NEGATIVE (NEGATIVE); RESPIRATORY SYNCYTIAL VIR NAA NEGATIVE (NEGATIVE)
[2024-11-22 12:44] LABS: BAND PERCENT MAN 0 % (0-10); BASOPHILS PERCENT MAN 0 (0.2-1.2); EOSINOPHILS PERCENT MAN 0 % (0.8-7.0); LYMPHOCYTES % ATYPICAL MANUAL 0 %; LYMPHOCYTES PERCENT MAN 8 % (20-40); MONOCYTES PERCENT MAN 0 % (2-10)
[2024-11-22 12:45] LABS: PLATELET COUNT ESTIMATE ADEQUATE
[2024-11-22 13:01] LABS: APPEARANCE,URINE CLEAR (Clear); BILIRUBIN,URINE NEGATIVE (Negative); COLOR,URINE YELLOW (Yellow); GLUCOSE,URINE 2+ (Negative); KETONES,URINE TRACE (Negative); LEUKOCYTE ESTERASE,URINE NEGATIVE (Negative); NITRITE,URINE NEGATIVE (Negative); OCCULT BLOOD,URINE TRACE-LYSED (Negative); PH,URINE 6.5 (5.0-8.0); PROTEIN,URINE 2+ (Negative)
[2024-11-22 13:14] LABS: BACTERIA,URINE FEW /hpf (FEW); EPITHELIAL CELLS,URINE 0-5 /hpf (0-5); RBC,URINE 0-5 /hpf (0-5); WBC CLUMPS,URINE FEW /hpf (NOT SEEN)
[2024-11-22 13:15] LABS: MUCUS,URINE FEW /hpf (FEW)
[2024-11-22] MEDS ORDERED: Polyethylene Glycol 3350 Powder 17 GM Packet PO PRN (15:05)
[2024-11-22] MEDS ORDERED: Ondansetron 4 MG/2 ML SDV IV PRN (15:05)
[2024-11-22] MEDS ORDERED: Albuterol 0.083% 2.5 MG/3 ML Neb Soln NEB PRN (15:05)
[2024-11-22] MEDS ORDERED: Docusate Sodium 100 MG Cap PO PRN (15:05)
[2024-11-22] MEDS: Sodium Chloride 0.9% 1,000 ML IV SCH (18:41)
[2024-11-22] MEDS: Insulin Lispro 100 Unit/ML 3 ML KwikPen SUBCUT SCH (19:58)
[2024-11-22] MEDS: Apixaban 5 MG Tab PO SCH (20:43)
[2024-11-22] MEDS: Doxycycline 100 MG in Sodium Chloride 0.9% 100 ML IV SCH (20:43)
[2024-11-23 05:09] LABS: A/G RATIO 0.6 (1-2); ALBUMIN 2.3 g/dl (3.4-5.0); ANION GAP 14.1 (5-15); BUN/CREATININE RATIO 17.5 (14-18); C-REACTIVE PROTEIN 15.16 mg/dL (<0.30); CALCIUM 8.9 mg/dL (8.5-10.1); CREATININE 1.2 mg/dL (0.7-1.3); EST CRCL DRUG DOSING (CG) 64.21 mL/min; MAGNESIUM 1.7 mg/dL (1.8-2.4); POTASSIUM,K 3.1 mEq/L (3.5-5.1); PROTEIN TOTAL,TP 5.9 g/dl (6.4-8.2)
[2024-11-23 05:50] LABS: BASOPHILS PERCENT AUTO 0.2 % (0.0-1.0); EOSINOPHILS ABSOLUTE AUTO 0.1 K/mm3 (0.0-0.4); EOSINOPHILS PERCENT AUTO 0.8 % (0.0-6.0); HEMATOCRIT 35.5 % (42.0-52.0); HEMOGLOBIN 11.9 gm/dl (14.0-18.0); IMMATURE GRAN ABSOLUTE AUTO 0.45 K/mm3 (0.00-0.05); IMMATURE GRAN PERCENT AUTO 2.7 % (0.0-0.4); LYMPHOCYTES ABSOLUTE AUTO 1.4 K/mm3 (1.0-4.8); LYMPHOCYTES PERCENT AUTO 8.6 % (24.0-44.0); MEAN CORPUSCULAR HEMOGLOBIN 29.8 pg (28.0-32.0); MEAN CORPUSCULAR HGB CONC 33.5 g/dl (32.0-36.0); MONOCYTES ABSOLUTE AUTO 1.5 K/mm3 (0.0-0.8); NEUTROPHILS ABSOLUTE AUTO 12.9 K/mm3 (1.8-7.7); NEUTROPHILS PERCENT AUTO 78.7 % (41.0-71.0); PLATELET COUNT,PLT 185 K/mm3 (150-400); RED BLOOD CELL COUNT 3.99 M/mm3 (4.52-5.90); WHITE BLOOD CELL COUNT,WBC 16.42 K/mm3 (3.9-11.3)
[2024-11-23] MEDS: Magnesium Sulfate 2 GM/50 mL 2 GM in Premix Bag 1 BAG IV ONE (08:26)
[2024-11-23] MEDS: Potassium Chloride 20 MEQ Tab.ER PO SCH (08:26)
[2024-11-23] MEDS: Albuterol/Ipratropium 3.0-0.5 MG/3 ML Neb Soln NEB PRN (09:31)
[2024-11-23] MEDS: cefTRIAXone 2 GM Vial IVPUSH SCH (10:18)
[2024-11-23] MEDS: Carvedilol 12.5 MG Tab PO SCH (17:24)
[2024-11-24 04:41] LABS: BASOPHILS ABSOLUTE AUTO 0.1 K/mm3 (0.0-0.2); BASOPHILS PERCENT AUTO 0.5 % (0.0-1.0); EOSINOPHILS ABSOLUTE AUTO 0.2 K/mm3 (0.0-0.4); EOSINOPHILS PERCENT AUTO 2.4 % (0.0-6.0); HEMATOCRIT 35.8 % (42.0-52.0); HEMOGLOBIN 11.6 gm/dl (14.0-18.0); IMMATURE GRAN ABSOLUTE AUTO 0.44 K/mm3 (0.00-0.05); IMMATURE GRAN PERCENT AUTO 4.5 % (0.0-0.4); LYMPHOCYTES ABSOLUTE AUTO 1.6 K/mm3 (1.0-4.8); LYMPHOCYTES PERCENT AUTO 16.6 % (24.0-44.0); MEAN CORPUSCULAR HEMOGLOBIN 28.4 pg (28.0-32.0); MEAN CORPUSCULAR HGB CONC 32.4 g/dl (32.0-36.0); MEAN CORPUSCULAR VOLUME 87.5 fl (83.0-99.0); MEAN PLATELET VOLUME 9.4 fl (9.4-12.4); MONOCYTES ABSOLUTE AUTO 0.9 K/mm3 (0.0-0.8); MONOCYTES PERCENT AUTO 8.9 % (0.0-8.0); NEUTROPHILS ABSOLUTE AUTO 6.5 K/mm3 (1.8-7.7); NEUTROPHILS PERCENT AUTO 67.1 % (41.0-71.0); PLATELET COUNT,PLT 216 K/mm3 (150-400); RED BLOOD CELL COUNT 4.09 M/mm3 (4.52-5.90); WHITE BLOOD CELL COUNT,WBC 9.73 K/mm3 (3.9-11.3)
[2024-11-24 05:16] LABS: A/G RATIO 0.7 (1-2); ALBUMIN 2.4 g/dl (3.4-5.0); ANION GAP 13.5 (5-15); BILIRUBIN TOTAL 0.6 mg/dL (0.2-1.0); BUN/CREATININE RATIO 16.7 (14-18); C-REACTIVE PROTEIN 9.12 mg/dL (<0.30); CREATININE 1.2 mg/dL (0.7-1.3); EST CRCL DRUG DOSING (CG) 64.21 mL/min; MAGNESIUM 1.8 mg/dL (1.8-2.4); POTASSIUM,K 3.5 mEq/L (3.5-5.1); PROTEIN TOTAL,TP 5.8 g/dl (6.4-8.2)
[2024-11-24] MEDS: Tamsulosin 0.4 MG Cap.ER PO SCH (06:55)
[2024-11-24] MEDS: aMILoride 5 MG Tab PO SCH (08:23)
[2024-11-24] MEDS: Furosemide 40 MG Tab PO SCH (08:23)
[2024-11-24] MEDS: atorvaSTATin 20 MG Tab PO SCH (08:23)
[2024-11-24] MEDS: Diltiazem 120 MG Cap.CD PO SCH (08:24)
[2024-11-24] MEDS: Amiodarone 200 MG Tab PO SCH (08:24)
[2024-11-24] MEDS: Acetaminophen 325 MG Tab PO PRN (10:31)
[2024-11-24] MEDS: Potassium Chloride 20 MEQ Tab.ER PO SCH (12:35)
[2024-11-24] MEDS: Magnesium Sulf/Wat 4 GM/50 mL 4 GM in Premix Bag 1 BAG IV ONE (12:35)
[2024-11-25 04:39] LABS: BASOPHILS PERCENT AUTO 0.3 % (0.0-1.0); EOSINOPHILS ABSOLUTE AUTO 0.2 K/mm3 (0.0-0.4); EOSINOPHILS PERCENT AUTO 2.5 % (0.0-6.0); HEMATOCRIT 37.9 % (42.0-52.0); HEMOGLOBIN 12.5 gm/dl (14.0-18.0); IMMATURE GRAN ABSOLUTE AUTO 0.37 K/mm3 (0.00-0.05); IMMATURE GRAN PERCENT AUTO 4.3 % (0.0-0.4); LYMPHOCYTES ABSOLUTE AUTO 1.6 K/mm3 (1.0-4.8); LYMPHOCYTES PERCENT AUTO 18.9 % (24.0-44.0); MEAN CORPUSCULAR HEMOGLOBIN 29.1 pg (28.0-32.0); MEAN CORPUSCULAR VOLUME 88.1 fl (83.0-99.0); MEAN PLATELET VOLUME 9.5 fl (9.4-12.4); MONOCYTES ABSOLUTE AUTO 0.6 K/mm3 (0.0-0.8); MONOCYTES PERCENT AUTO 7.1 % (0.0-8.0); NEUTROPHILS ABSOLUTE AUTO 5.8 K/mm3 (1.8-7.7); NEUTROPHILS PERCENT AUTO 66.9 % (41.0-71.0); PLATELET COUNT,PLT 266 K/mm3 (150-400); WHITE BLOOD CELL COUNT,WBC 8.69 K/mm3 (3.9-11.3)
[2024-11-25 05:21] LABS: A/G RATIO 0.7 (1-2); ALBUMIN 2.5 g/dl (3.4-5.0); ANION GAP 14.1 (5-15); BILIRUBIN TOTAL 0.7 mg/dL (0.2-1.0); BUN/CREATININE RATIO 14.2 (14-18); C-REACTIVE PROTEIN 4.98 mg/dL (<0.30); CALCIUM 9.3 mg/dL (8.5-10.1); CREATININE 1.2 mg/dL (0.7-1.3); EST CRCL DRUG DOSING (CG) 64.21 mL/min; MAGNESIUM 1.9 mg/dL (1.8-2.4); POTASSIUM,K 4.1 mEq/L (3.5-5.1); PROTEIN TOTAL,TP 6.1 g/dl (6.4-8.2)
== END 2024-11-25 14:51 | disposition home or self-care (01) | DRG 720 ==
LOC: JD.ED 09:44 → JD.MS 13:29
PROVIDERS: ADMIT Family Medicine; ATTEND Family Medicine
DX: A41.9 Sepsis, unspecified organism (principal); J18.9 Pneumonia, unspecified organism; H54.7 Unspecified visual loss; I48.91 Unspecified atrial fibrillation; I11.0 Hypertensive heart disease with heart failure; M54.9 Dorsalgia, unspecified; G89.29 Other chronic pain; M19.90 Unspecified osteoarthritis, unspecified site; E11.9 Type 2 diabetes mellitus without complications; I42.9 Cardiomyopathy, unspecified; R55 Syncope and collapse; S01.81XA Laceration without foreign body of other part of head, initial encounter; I50.32 Chronic diastolic (congestive) heart failure; E87.6 Hypokalemia; E83.42 Hypomagnesemia; Z79.4 Long term (current) use of insulin; Z79.01 Long term (current) use of anticoagulants; Z79.899 Other long term (current) drug therapy; Z95.0 Presence of cardiac pacemaker
CPT/HCPCS: 0241U; 36415; 70450; 70450-26; 70486; 70486-26; 71045; 71045-26; 80053; 81001; 82947; 83605; 83735; 84484; 85007; 85025; 85027; 85610; 86140; 87040; 87077; 87154; 87186; 93005; 93010; 93306; 93880; 93880-26; 94640; 94760; 94761; 96361; 96374; 97112-GP; 97116-GP; 97161-GP; 99285; 99285-25; A9270-GY; C1758; J0696; J3475; J3490; J7030